=== PATIENT | female | born 1995 ===

== ENCOUNTER → 2023-05-28 | Outpatient (CLI) | payer OTHER ==
[~2023-05-28] MED LIST: CETI10; CODACE30 PO; NITR100CA; RXCODACET PO; SULTRIEL
== END | disposition home or self-care (01) ==
LOC: LAB 12:17 → LAB SHORT 12:17
DX: N39.0 Urinary tract infection, site not specified (principal)
CPT/HCPCS: 87077; 87086; 87186

== ENCOUNTER → 2024-12-20 | Outpatient (CLI) | payer OTHER | LOC: LAB 18:29 → LAB SHORT 18:29 | PROVIDERS: Family Medicine | DX: Z01.419 Encounter for gynecological examination (general) (routine) without abnormal findings (principal) | CPT/HCPCS: G0123 ==